=== PATIENT | female | born 1990 | race Asian ===

== ENCOUNTER 2024-08-05 05:53 | Inpatient (IN) ==
--- NOTE | 2024-07-26 15:19 | Anesthesiology Consultation ---
Date of Service July 26, 2024 Assessment & Plan (1) Encounter for pre-operative examination: Chart Review Chart Review: Patient NOT seen in Pre Admission Testing and administrative assistant data entry initiated Infectious Disease screening: Per PAT nursing assessment on 07/26/24, No known infectious disease contacts in past 10 days or current infectious disease symptoms. No recent travel outside the country. Pt had previous C/S in [place]; unable to obtain records; pt denies knowing any issues with anesthesia History Surgery Operation Date: 08/05/24 07:30 Proposed Procedures p Section in LD - Gwendolyn Araiza MD, FACOG s Post Tubal Ligation Labor & Deliv - Gwendolyn Araiza MD, FACOG Height/Weight Height: 5 ft 3 in Weight: 92.533 kg Allergies Allergy/AdvReac Type Severity Reaction Status Date / Time No Known Allergies Allergy Verified 07/26/24 14:13 Medications Home Medications Medication Instructions Recorded Confirmed Last Taken prenat.vits,alonso,[id number] 1 tab PO QAM 12/29/23 07/26/24 Unknown pen needle, diabetic 32 gauge x #100 ea 05/23/24 07/26/24 Unknown /32" (BD Ultra-Fine Maris Pen Needle) insulin NPH isoph U-100 human 100 12 unit (0.12 mL) subcut QPM #15 mL 06/06/24 07/26/24 Unknown unit/mL (3 mL) subcutaneous pen (Novolin N FlexPen) Past Medical History Medical History (Updated 07/26/24 @ 15:21 by Marita Guevara PA-C) ASCUS of cervix with negative high risk HPV Insulin controlled gestational diabetes mellitus (GDM) during Past Family History Family History Father Diabetes Hypertension Mother Diabetes Past Surgical History Surgical History Hx of section x2 11/2016 and 06/2018 Social History Smoking Status: Never smoker Do You Dip or Chew Tobacco: No Hx Alcohol Use: No Hx Substance Use: No substance use type: does not use
--- NOTE | 2024-08-04 17:16 | History & Physical Report ---
Date of Service August 04, 2024 Assessment & Plan (1) Insulin controlled gestational diabetes mellitus (GDM) during : Plan: IUP at 39+ weeks , s/p LTCS X 2 now presents for repeat C/S and bilateral salpingectomies because of multiparity and unwanted fertility the procedure and it's risks reviewed with the patient and all questions answered to her satisfaction and she is willing to proceed. History of Present Illness Primary Care Provider: NO PCP Patient is a 34 yo female EDC 08/09/24 who presents at 39 3/7 weeks for repeat LTCS and charlie salpingectomies. complicated by prior C/S X 2, GDM on insulin. testing has been reassuring with AGA fetus on growth scans. Allergies Allergy/AdvReac Type Severity Reaction Status Date / Time No Known Allergies Allergy Verified 08/04/24 14:18 Home Medications Medication Instructions Recorded Confirmed Type prenat.vits,alonso,[id number] 1 tab PO QAM 12/29/23 08/04/24 History pen needle, diabetic 32 gauge x #100 ea 05/23/24 08/04/24 Rx /32" (BD Ultra-Fine Maris Pen Needle) insulin NPH isoph U-100 human 100 12 unit (0.12 mL) subcut QPM #15 mL 06/06/24 08/04/24 Rx unit/mL (3 mL) subcutaneous pen (Novolin N FlexPen) Patient History Medical History ASCUS of cervix with negative high risk HPV Insulin controlled gestational diabetes mellitus (GDM) during Surgical History Hx of section x2 11/2016 and 06/2018 Family History Father Diabetes Hypertension Mother Diabetes Social History (Updated 12/29/23 @ 13:32 by Jessica Gan) Smoking Status: Never smoker Second Hand Exposure: No; Do You Dip or Chew Tobacco: No; Hx Alcohol Use: No Hx Substance Use: No Preferred Language: [facility] Asst Required: Yes Beliefs That Will Affect Care: None marital status: marital status details: [phone] (friend Yeison) Current Living Situation: Spouse and Family Current Living Situation Comment: lives with spouse and 2 children current occupational status: unemployed current occupation: homemaker Feels Safe at Home: Yes Assistive Devices: Glasses Review of Systems All systems reviewed & are unremarkable except as noted in HPI & below Physical Exam 2 Constitutional: WD/WN, vitals as above Respiratory: normal respiratory effort, lungs clear to auscultation Cardiovascular: RRR, no murmur, no edema Genitourinary: OB Exam Abdomen: + vertex OB Exam Monitor Tracing: + external FHT monitor used, + external uterine monitor used, + category I and + normal FHT variability Coding Level of Care Code 78386 INT INP/OBS CARE MIN Diagnoses Insulin controlled gestational diabetes mellitus (GDM) in third trimester O24.414 Trimester: third trimester (1) Insulin controlled gestational diabetes mellitus (GDM) during Trimester: third trimester Qualified Code(s): O24.414 - Gestational diabetes mellitus in , insulin controlled
[2024-08-05] MEDS ORDERED: MoRPHine SULFATE PF 1 MG/ML 10 ML AMP/VIAL ONE (06:29)
[2024-08-05] MEDS ORDERED: fentaNYL citrate PF 100 MCG/2 ML VIAL ONE (06:29)
[2024-08-05] MEDS ORDERED: OXYTOCIN 10 UNITS/ML VIAL ONE ×2 (06:30→08:16)
[2024-08-05] MEDS ORDERED: PHENYLEPHRINE HCL 25 MG/250 ML NSS IV ONE (06:34)
[2024-08-05] MEDS: LACTATED RINGER'S 1,000 ML IV SCH ×2 (06:45→07:18)
[2024-08-05] MEDS: ACETAMINOPHEN 500 MG TAB PO SCH (07:07)
[2024-08-05] MEDS: ceFAZolin 3,000 MG/72.5 ML BAG IV SCH (07:08)
[2024-08-05] MEDS: CITRIC ACID/SODIUM CITRATE 15 ML UDC PO SCH (07:10)
--- NOTE | 2024-08-05 07:20 | History & Physical Bridge Note ---
Date of Service August 05, 2024 History & Physical Bridge Note I have examined the patient, reviewed the History & Physical and in the interval since the performance of the History & Physical I have noted the following changes of clinical significance: no changes noted
[2024-08-05 07:32] LABS: Hematocrit (blood only) 39.8 % (37.0-47.0); Hemoglobin 12.6 g/dl (12.0-16.0); Mean Corpuscular Hemoglobin 24.1 pg (25.0-34.0); Mean Corpuscular Hgb Conc 31.7 g/dL (32.0-36.0); Mean Corpuscular Volume 76.1 fL (80.0-100.0); Mean Platelet Volume 11.7 fL (9.4-12.4); Platelet Count 163 K/uL (130-400); RDW Coefficient of Variation 15.1 % (11.5-14.5); RDW Standard Deviation 41.1 fL (36.4-46.3); Red Blood Count 5.23 M/uL (4.20-5.40); White Blood Count 6.86 K/ul (4.8-10.8)
[2024-08-05] MEDS ORDERED: HYDROmorphone INJ 0.5 MG/0.5 ML SYR IV PRN (07:52)
[2024-08-05] MEDS ORDERED: NALOXONE HCL 0.4 MG/1 ML VIAL/CARP IV PRN (07:52)
[2024-08-05] MEDS ORDERED: NALBUPHINE HCL INJ 10 MG/ML AMP IV PRN (07:52)
[2024-08-05] MEDS ORDERED: NALOXONE HCL 1 MG in SODIUM CHLORIDE 0.9% 1,000 ML IV PRN (07:52)
[2024-08-05] MEDS ORDERED: NALOXONE HCL 0.08 MG in SYRINGE 1.8 ML IV PRN (07:52)
[2024-08-05] MEDS ORDERED: MoRPHine SULFATE PF 1 MG/ML 10 ML AMP/VIAL INT SPINAL ONE (07:52)
[2024-08-05] MEDS ORDERED: LACTATED RINGER'S 500 ML IV PRN (07:52)
[2024-08-05] MEDS ORDERED: KETOROLAC 30 MG/ML VIAL IV PRN (07:52)
[2024-08-05] MEDS ORDERED: ONDANSETRON INJ 2 MG/ML 2 ML VIAL IV PRN ×2 (07:52→08:48)
[2024-08-05] MEDS ORDERED: ePHEDrine sulfate 50 MG/ML AMP IV PRN (07:52)
[2024-08-05] MEDS ORDERED: diphenhydrAMINE 50 MG/ML VIAL IV PRN (07:52)
[2024-08-05] MEDS ORDERED: SODIUM CHLORIDE 0.9% 250 ML IV PRN (07:56)
[2024-08-05] MEDS ORDERED: NO NARCOTICS OR SEDATIVES SCH (08:00)
[2024-08-05] MEDS ORDERED: DC INTRASPINAL MORPHINE SCH (08:00)
[2024-08-05] MEDS ORDERED: SODIUM CHLORIDE 0.9% 1,000 ML IV SCH (08:00)
[2024-08-05] MEDS ORDERED: ONDANSETRON INJ 2 MG/ML 2 ML VIAL ONE (08:05)
[2024-08-05] MEDS ORDERED: KETOROLAC 30 MG/ML VIAL ONE (08:25)
--- NOTE | 2024-08-05 08:47 | Post Operative Brief Note ---
Immediate Post Op Note Date of Surgery August 05, 2024 Pre & Post Diagnosis Operation Date: 08/05/24 07:30 <No data on this case meets the specified criteria> I identified the patient and participated in the time-out.: Yes Procedure Operation Date: 08/05/24 07:30 <No data on this case meets the specified criteria> Surgeon Gwendolyn Araiza MD, FACOG Survey Methodologist Rachid Butler MD Quantitative Blood Loss (QBL) 335 Findings Consistent with Post-Op Diagnosis gravid uterus consistent with term , bilateral tubes and ovaries are normal Specimens Specimen Description: 1. Placenta-Hold. 2. Cord Blood. 3. Right portion of fallopian tube. 4. Left portion of fallopian tube. Drains Emanuel Catheter (clear urine at end of case) Anesthesia Type Spinal Complications none Disposition Accompanied Patient To Recovery: Yes Disposition: L&D
[2024-08-05] MEDS ORDERED: HYDROCORTISONE ACETATE 25 MG SUPP PR PRN (08:48)
[2024-08-05] MEDS ORDERED: CALCIUM CARBONATE 500 MG CHEWABLE TAB PO PRN (08:48)
[2024-08-05] MEDS ORDERED: MAGNESIUM HYDROXIDE SUSP 30 ML UDC PO PRN (08:48)
[2024-08-05] MEDS ORDERED: BENZOCAINE 20% SPRY 85 APPLN/85 GM CAN EXT PRN (08:48)
[2024-08-05] MEDS ORDERED: SENNA 8.6 MG TAB PO PRN (08:48)
[2024-08-05] MEDS ORDERED: LACTATED RINGER'S 1,000 ML IV SCH (09:00)
--- NOTE | 2024-08-05 10:48 | Operative Report ---
Post Operative Report Pre & Post Diagnosis Operation Date: 08/05/24 07:30 Pre-Op Diagnosis: 1. 39 + Weeks Gestation. 2. Gestational Diabetes-Insulin. 3. Scheduled Elective Repeat C/S and Bilateral Salpingectomies. Post-Op Diagnosis: 1. 39 + Weeks Gestation. 2. Gestational Diabetes-Insulin. 3. Scheduled Elective Repeat C/S and Bilateral Salpingectomies. 4. Delivery of Male Infant via Repeat C/S in L&D OR on 08/05/2024 at 0807. 5. Delivery of Placenta. 6. Cord Blood Collected. 7. Right portion of fallopian tube ligation. 8. Left portion of fallopian tube ligation. I identified the patient and participated in the time-out.: Yes Procedure Operation Date: 08/05/24 07:30 Actual Procedures p Section - Gwendolyn Araiza MD, FACOG s with Bilateral Tubal Ligation - Gwendolyn Araiza MD, FACOG Surgeon Gwendolyn Araiza MD, FACOG Wax Pot Tender Rachid Butler MD Quantitative Blood Loss (QBL) 335 Findings Consistent with Post-Op Diagnosis Specimens placenta to hold Drains Emanuel catheter to straight drainage- clear urine at end of the case Anesthesia Type Spinal Complications none Disposition Accompanied Patient To Recovery: Yes Disposition: L&D Indications prior C/S X 2 fertility and unwanted fertility Description of Procedure After patient received adequate subarachnoid block she was prepped and draped in usual sterile fashion a low transverse skin incision was made through her prior scar and carried to the fascia with the same scalpel. The fascial incision was then extended with Echevarria scissors and the edges of the fascia were grasped with Marium clamps. The underlying rectus muscles were bluntly and sharply dissected off of the overlying fascia. Peritoneum was then entered bluntly. The bladder was then taken down off the anterior surface of the uterus and placed behind the bladder blade. The lower uterine segment was entered with a scalpel and extended transversely by stretching the incision in a cephalad and caudad direction. Membranes were ruptured for clear fluid. The infant was then delivered from the vertex presentation with moderate fundal pressure. He was vigorous crying and moving all 4 limbs. The cord was clamped and cut and the was handed off to Dr. Hart who was in attendance his enterprise applications manager. Placenta was then expressed intact with a three-vessel cord after obtaining cord blood sample. The uterus was exteriorized to cover the clean lap sponge. The uterine cavity was explored and found to be free of any placental tissue or membranes. Bleeding was controlled with uterine massage, dilute Pitocin as well as an additional 10 units of Pitocin into the uterine fundus. At this point the uterus was firm. The uterus was closed in 1 layer in a running locking fashion with 0 Monocryl suture. Hemostasis was noted to be excellent and the uterine incision. Attention was then turned to the bilateral salpingectomies. The right fallopian tube was grasped with a Sidman clamp the LigaSure device was then used to remove the entire fallopian tube starting at the fimbriated end to its insertion on the cornua. The left loping tube was then identified grasped with an Sidman clamp, and in the same fashion, removed the tube in its entirety from the fimbriated end to its insertion on the cornea of the uterus. Hemostasis noted be excellent at both salpingectomy sites. Posterior cul-de-sac was suctioned for small amount of blood and fluid. Uterus was then carefully placed inside the abdominal cavity after ensuring that the uterine incision continued to have excellent hemostasis. The gutters were then examined as well as the salpingectomy sites and there was no free fluid blood or clot present in the gutters and the salpingectomy sites continue to have excellent hemostasis. The rectus muscle were then brought together in the midline with individual stitches of 0 Monocryl. The fascia was closed in a running fashion with 0 Vicryl. The subcutaneous layer was then irrigated with normal saline. The skin edges were reapproximated in subcuticular fashion with 4-0 Vicryl. Patient tolerated the procedure well and was stable upon arrival back in labor and delivery. I attest to the content of the Intraoperative Record and any orders documented therein. Any exceptions are noted below. OB Procedure Charges [id number] [id number] Add on Tubal for C/S (bilateral salpingectomy with Ligasure device)
[2024-08-05] MEDS: OXYTOCIN 20 UNITS/LR 1,002 ML IV SCH (11:15)
[2024-08-05] MEDS: SIMETHICONE 80 MG CHEW PO SCH (12:57)
[2024-08-05] MEDS: ACETAMINOPHEN 325 MG TAB PO SCH (14:01)
[2024-08-05] MEDS: IBUPROFEN 600 MG TAB PO SCH (14:02)
--- NOTE | 2024-08-05 14:35 | Anesthesiology Progress Note ---
Date of Service August 05, 2024 Anesthesia Post Procedure Vital Signs Vital Signs: Temp Pulse Pulse Resp BP BP Pulse Ox 08/05/24 11:13 36.5 C 16 08/05/24 11:10 36.8 C 63 17 106/67 100 08/05/24 11:10 16 100 08/05/24 11:10 36.5 C 63 16 106/67 100 08/05/24 10:57 58 L 110/59 L 08/05/24 10:54 60 100 08/05/24 10:49 59 L 100 08/05/24 10:47 58 L 103/68 08/05/24 10:44 56 L 99 08/05/24 10:39 64 100 08/05/24 10:38 58 L 110/59 L 08/05/24 10:34 61 100 08/05/24 10:30 18 08/05/24 10:29 63 100 08/05/24 10:28 64 152/102 H 08/05/24 10:24 69 100 08/05/24 10:19 58 L 100 08/05/24 10:14 57 L 100 08/05/24 10:09 70 100 08/05/24 10:07 67 124/77 08/05/24 10:04 54 L 100 08/05/24 10:00 16 08/05/24 10:00 18 08/05/24 09:59 60 100 08/05/24 09:57 88 119/71 08/05/24 09:54 63 100 08/05/24 09:50 16 08/05/24 09:49 73 100 08/05/24 09:48 72 120/59 L 08/05/24 09:44 59 L 100 08/05/24 09:40 16 08/05/24 09:39 57 L 100 08/05/24 09:34 63 100 08/05/24 09:33 16 08/05/24 09:29 62 100 08/05/24 09:24 59 L 100 08/05/24 09:20 18 08/05/24 09:19 64 100 08/05/24 09:17 66 102/64 08/05/24 09:14 59 L 100 08/05/24 09:10 16 08/05/24 09:09 66 100 08/05/24 09:07 68 94/65 L 08/05/24 09:04 66 100 08/05/24 09:00 36.4 C L 18 08/05/24 08:59 66 100 08/05/24 08:55 65 98/69 L 08/05/24 08:54 70 100 08/05/24 07:00 18 08/05/24 07:00 18 08/05/24 06:30 18 08/05/24 06:30 18 08/05/24 06:11 36.7 C 18 08/05/24 06:05 76 118/77 O2 Del Method 08/05/24 11:13 08/05/24 11:10 Room Air 08/05/24 11:10 08/05/24 11:10 Room Air 08/05/24 10:57 08/05/24 10:54 08/05/24 10:49 08/05/24 10:47 08/05/24 10:44 08/05/24 10:39 08/05/24 10:38 08/05/24 10:34 08/05/24 10:30 08/05/24 10:29 08/05/24 10:28 08/05/24 10:24 08/05/24 10:19 08/05/24 10:14 08/05/24 10:09 08/05/24 10:07 08/05/24 10:04 08/05/24 10:00 08/05/24 10:00 08/05/24 09:59 08/05/24 09:57 08/05/24 09:54 08/05/24 09:50 08/05/24 09:49 08/05/24 09:48 08/05/24 09:44 08/05/24 09:40 08/05/24 09:39 08/05/24 09:34 08/05/24 09:33 08/05/24 09:29 08/05/24 09:24 08/05/24 09:20 08/05/24 09:19 08/05/24 09:17 08/05/24 09:14 08/05/24 09:10 08/05/24 09:09 08/05/24 09:07 08/05/24 09:04 08/05/24 09:00 08/05/24 08:59 08/05/24 08:55 08/05/24 08:54 08/05/24 07:00 08/05/24 07:00 08/05/24 06:30 08/05/24 06:30 08/05/24 06:11 08/05/24 06:05 Pain Intensity Medial Abdomen: Pain Intensity: 3 Notes Mental Status: alert / awake / arousable Patient Amnestic to Procedure: Yes Nausea / Vomiting: adequately controlled Pain: adequately controlled Airway Patency, RR, SpO2: stable & adequate BP & HR: stable & adequate Hydration State: stable & adequate Neuraxial Anesthesia: was administered and sensory block is resolving Anesthetic Complications: no major complications apparent
[2024-08-05] MEDS: DIPHTHER/TETAN/PERTUS Vaccine (Tdap, Adol/Adult) 0.5mL IM ONE (19:13)
[2024-08-05] MEDS: DOCUSATE SODIUM 100 MG CAP PO SCH (20:45)
[2024-08-06] MEDS ORDERED: PROMETHAZINE 12.5 MG/50.5 ML BAG IV PRN (01:52)
[2024-08-06] MEDS ORDERED: diphenhydrAMINE 50 MG/ML VIAL IV PRN (01:53)
[2024-08-06] MEDS ORDERED: oxyCODONE HCL IR 5 MG TAB (IMMEDIATE RELEASE) PO PRN (01:53)
[2024-08-06] MEDS ORDERED: diphenhydrAMINE Capsule 25 MG CAP PO PRN (01:53)
[2024-08-06] MEDS ORDERED: HYDROmorphone INJ 0.5 MG/0.5 ML SYR IV PRN (01:53)
[2024-08-06 07:17] LABS: Basophils # (auto) 0.02 K/uL (0.00-0.20); Basophils % (auto) 0.2 %; Eosinophils # (auto) 0.09 K/uL (0.00-0.50); Eosinophils % (auto) 1.1 %; Hematocrit (blood only) 35.4 % (37.0-47.0); Hemoglobin 11.6 g/dl (12.0-16.0); Immature Granulocytes # (auto) 0.03 K/uL (0.01-0.20); Immature Granulocytes % (auto) 0.4 %; Lymphocytes % (auto) 18.6 %; Mean Corpuscular Hemoglobin 24.5 pg (25.0-34.0); Mean Corpuscular Hgb Conc 32.8 g/dL (32.0-36.0); Mean Corpuscular Volume 74.7 fL (80.0-100.0); Mean Platelet Volume 11.1 fL (9.4-12.4); Neutrophils # (auto) 6.03 K/uL (1.40-6.50); Neutrophils % (auto) 74.7 %; Platelet Count 152 K/uL (130-400); RDW Coefficient of Variation 14.9 % (11.5-14.5); RDW Standard Deviation 40.4 fL (36.4-46.3); Red Blood Count 4.74 M/uL (4.20-5.40); White Blood Count 8.07 K/ul (4.8-10.8)
--- NOTE | 2024-08-06 07:38 | Obstetrical Progress Note ---
Date of Service August 06, 2024 Assessment & Plan (1) delivery delivered: Plan: 1st POD foll El LTCS and BL salpingectomy for s/p LTCS X 2 at 39 weeks POD with GDM under Insulin. Overall doing well: Vitals: Stable Pain : Mild Urine: passed Gas: Passed Ambulation : to bathroom Diet: Ob normal Post op Hb: 11.6gm% Continue same trt as per protocol Encouraged ambulation. Encouraged feeding to baby. Possible discharge tomorrow. (2) Insulin controlled gestational diabetes mellitus (GDM) during : Plan: - GDM: Insulin stoped after delivery Advise: OGTT in 6 weeks PP. Admission and Anticipated Discharge Date Admission Date: August 05, 2024 Supervising Physician Co-Signing Physician Notes Resident Physician Supervision Note: Discussed with Dr. Garcia and agree with findings and plan as documented in the note. Any exceptions or clarifications are listed here: [ ] Documented By: Tammie Ferrera MD, FACOG Subjective 1st POD foll El LTCS and BL salphingectomy for s/p LTCS X 2 at 39 weeks POD. No active complains Vitlas: Stable Pain : Mild Urine: passed Gas: Passed Ambulation : to bathroom Diet: Ob normal Baby kept at nursery Review of Systems Review of Systems: As per HPI Physical Exam Physical Exam: General: Alert and oriented. No acute distress. CV: Regular rate and rhythm. No murmurs. Respiratory: CTA bilaterally. No rhonchi, wheezes, or crackles. No increased work of breathing. Abdomen: Positive bowel sounds. Soft, nontender, and nondistended. Uterus: Fundus firm and palpable midway between umbilicus and Symphysis pubis. Surgical scar clean and healing well. Bandage removed. Lower extremities: No LE edema. No deep calf pain. Daniel's negative bilaterally. Results & Data Vital Signs (Past 12 Hours) Vital Signs Temp Pulse Resp BP Pulse Ox O2 Del Method 08/06/24 03:38 36.7 C 68 16 100/61 100 Room Air 08/05/24 23:12 36.8 C 65 16 95/64 L 96 Room Air Resident Activity Tracking Resident Involvement: Resident Care Provided Care Provided: OB Delivery (2) Insulin controlled gestational diabetes mellitus (GDM) during Trimester: third trimester Qualified Code(s): O24.414 - Gestational diabetes mellitus in , insulin controlled
[2024-08-06] MEDS: FERROUS SULFATE 325 MG TAB PO SCH (08:04)
[2024-08-06] MEDS: PRENATAL VITAMIN 1 TAB PO SCH (08:04)
[2024-08-06] MEDS: bisacodyL 5 MG TABEC PO SCH (20:27)
[2024-08-06 21:39] VITALS: TEMP 98.4
[2024-08-07 06:49] LABS: Hematocrit (blood only) 35.6 % (37.0-47.0); Hemoglobin 11.1 g/dl (12.0-16.0)
[2024-08-07 07:33] VITALS: BP 112/73; PULSE 69; RESP 18; O2SAT 100
[2024-08-07] MEDS ORDERED: bisacodyL 10 MG SUPP PR PRN (08:48)
--- NOTE | 2024-08-07 08:51 | Obstetrical Progress Note ---
Date of Service August 07, 2024 Assessment & Plan (1) delivery delivered: satisfactory and postop recovery will discharge to home today follow up in 6 weeks or PRN Subjective Ambulation: ambulating normally Voiding: no voiding problems Passing Gas:: Yes Diet Tolerance:: regular diet Lochia:: Small Feeding Type:: breast feeding doing well this morning- pain well controlled with NSAID and Tylenol Review of Systems All systems reviewed & are unremarkable except as noted in HPI & below Physical Exam Constitutional WD/WN, vitals as above Gastrointestinal (Abdomen) Inspection/Auscultation: + abdominal surgical incision (dry & intact- no cellulitis) Psychiatric A+Ox3, euthymic affect Genitourinary OB Exam Abdomen: + fundal height Fundus: + firm and + relation to umbilicus (2 below U) Results & Data Vital Signs (Past 12 Hours) Vital Signs Temp Pulse Resp BP Pulse Ox O2 Del Method 08/07/24 07:32 98.4 F 69 18 112/73 100 Room Air 08/06/24 23:09 98.4 F 66 16 111/69 96 Room Air
[2024-08-07] MEDS ORDERED: IBUPROFEN 600 MG TAB PO PRN (13:48)
[2024-08-07] MEDS ORDERED: ACETAMINOPHEN 325 MG TAB PO PRN (13:48)
--- NOTE | 2024-08-08 08:56 | Discharge Summary ---
Date of Service August 08, 2024 Admission HPI Per Admitting Provider Patient is a 34 yo female EDC 08/09/24 who presents at 39 3/7 weeks for repeat LTCS and charlie salpingectomies. complicated by prior C/S X 2, GDM on insulin. testing has been reassuring with AGA fetus on growth scans. Admission Exam (Per Admitting) Constitutional WD/WN, vitals as above Respiratory normal respiratory effort, lungs clear to auscultation Cardiovascular RRR, no murmur, no edema Gastrointestinal (Abdomen) Inspection/Auscultation: + abdominal surgical incision (dry & intact- no cellulitis) Psychiatric A+Ox3, euthymic affect Genitourinary OB Exam Abdomen: + fundal height and + vertex OB Exam Monitor Tracing: + external FHT monitor used, + external uterine monitor used, + category I and + normal FHT variability Discharge Data Consultations 08/05/24 06:40 Consult Anesthesiology Stat Procedures Performed Operation Date: 08/05/24 07:30 Actual Procedures p Section - Gwendolyn Araiza MD, FACOG s with Bilateral Tubal Ligation - Gwendolyn Araiza MD, FACOG Hospital Course (1) delivery delivered: satisfactory and postop recovery will discharge to home today follow up in 6 weeks or PRN Discharge Plan Discharge Items Patient Disposition: Home - Self-Care Reason For Visit: History of Section, Request for Steriliza Discharge Diagnosis: and bilateral salpingectomy Activity: Per Instructions section Non-emergency contact: Caterer Helper Call non-emergency contact if: your pain is not controlled, your pain is concerning for you, your temperature is above 101, your wound has increased redness, your wound has increased drainage and your wound pain has increased Follow-up/Referrals: PCP,NO [Primary Care Provider] - Diet: Regular Addtl Attending Provider Instructions: ACTIVITY RECOMMENDATIONS: * Gradual return to full activity over the next 2-3 weeks. * No lifting - nothing heavier than baby over the next 2-3 weeks. * Do not engage in vigorous exercise, sexual activity or sports until cleared by your physician. * Do not drive or operate any motorized equipment until cleared by your physician. * You may shower/bathe daily. MEDICATIONS: For discomfort or pain, you may use Acetaminophen (Tylenol), Ibuprofen (Advil), or Naproxen (Aleve) following the package directions. For constipation you may use Colace following the package directions. BREAST CARE: If you are not breast feeding: * Wear a supportive bra 24 hours a day for one to two weeks. * Avoid stimulating your breasts and nipples as much as possible during the first few weeks after delivery. * When taking a shower, have the warm water hit your back, not breasts. * When your breasts feel full, apply ice packs. Usually three to four times a day helps ease the discomfort. * Take a mild pain medication (Tylenol / Motrin) when you are uncomfortable. If breast feeding: * Use breast milk to lubricate nipples. Lansinoh cream may be used for sore nipples. You do not need to remove cream prior to breast feeding. If using a different brand of cream, check the label for directions regarding removal of cream prior to nursing. * Wear a supportive bra. * If having problems with breasts or breast feeding, call a accounting policy consultant or your health care provider. SPECIAL CARE INSTRUCTIONS: When you are discharged from the hospital, it is important for you to follow the instructions listed below: * During the first week at home, you should be able to care for yourself and your baby. In addition, the usual light household activities are encouraged. * Limit your activities to the way you feel. Do not try to clean the house or move furniture. Be sensible. * If you actively engage in sports and have done so up until the time of your delivery, you may resume these activities as soon as you feel able. This may take up to one month or even longer. Use good judgment. * Continue to take your vitamins for at least six weeks after the of your baby. * Your diet need not be limited unless you were on a special diet before your delivery. Breast-feeding mothers need around 2500 calories per day and at least 64-80 ounces of fluid per day (8 to 10 glasses). * You should eat foods from the four major food groups. Crash diets or fad diets are to be avoided. Eating lean meats, fresh fruits and vegetables, low-fat dairy products, high fiber foods and a regular exercise program, will help you get back to your pre- weight without putting your health at risk. * Constipation is sometimes a problem after delivery. Take a mild laxative as needed. If breast feeding, Milk of Magnesia is acceptable to use. You may use a suppository or Fleets enema. * A daily shower or tub bath is suggested. Wash incision daily with warm soapy water and pat dry. It doesn't need to be covered unless drainage is present. * A bloody vaginal discharge will usually continue until around four weeks . A small amount of bleeding may continue for as long as six weeks. Vaginal discharge changes from the bright red bleeding after delivery to pink then brownish and finally yellowish-pink before becoming white and disappearing. * Bleeding may increase with activity. Your first period may come in 4-8 weeks. If you are breast feeding, your period may be delayed even longer. * [place] (sex) can begin whenever both you and your partner feel comfortable and do not have any form of genital infection. It is recommended that you wait at least six weeks for internal and external healing to occur. If you have questions, please talk to your health care practitioner. A condom should be used to prevent infection and . * Foreplay, gentle intercourse and lubrication is very important the first several times to prevent pain. A water-based lubricant such as K-Y jelly or Astroglide may be used. * If you have RH negative blood and your baby is RH positive, you will receive RHOGAM by injection prior to discharge. The nurse will give you a card to keep with you that has the date and place that you received RHOGAM after delivery. * During your care, you had a Rubella screen done to check for the presence of rubella antibodies in your blood. If your test was negative, you will receive a Rubella vaccine prior to discharge. This vaccine may cause a fever, soreness at the injection site and flu-like symptoms. If these symptoms persist, notify your health care practitioner. is not advised for one month after a Rubella vaccine. * Verbalizes understanding of car seat law as reviewed with patient nursing. * Car Seat hand-out given and reviewed with patient by nursing. * Shaken baby information reviewed with patient by nursing. Call you doctor if: * Heavy bleeding (saturating several pads an hour) or passing clots the size of your fist. * A fever >101 degrees F (38.3 degrees C) on two occasions four hours apart and/or chills. * Unusual pain in the pelvic or vaginal areas. * Call the doctor for any increased redness, drainage or swelling around the incision and any pain unrelieved by prescribed pain medication. * "Baby Blues" lasting longer than two weeks. If you have any questions or concerns, call your health care practitioner at . FOLLOW UP VISIT: * Please call the office at to schedule a 6 week examination. It is important you keep this appointment. It is important for you to make arrangements for either yearly or twice yearly check-ups thereafter. Pending Studies at Discharge: Yes Studies:: path report Stand-Alone Forms: [facility] Medications and DC Order Prescriptions: Continued prenat.vits,alonso,[id number] Tablet 1 tab PO QAM Discontinued (DME) pen needle, diabetic [BD Ultra-Fine Maris Pen Needle] 32 gauge x 5/32" needle See Rx Instructions miscellaneous .MEDSUPPLY Qty: 100 0RF Rx Instructions: As directed to use with insulin pen Novolin N FlexPen 100 unit/mL (3 mL) insulin pen 12 unit subcut QPM Qty: 15 0RF Rx Instructions: Inject 12 units at bed time. Increase as needed up to TDD of 30 units a day. Discharge Orders: Discharge Order (Routine); Ordered 08/07/24 Ordered By: Gwendolyn Quezada/Other Patient Handouts: Understanding Deep Vein Thrombosis, Understanding Depression Admission Data Admit Date/Time: 08/05/24 05:53 Attending Provider: Gwendolyn Araiza Admit Provider: Gwendolyn Araiza Primary Care Provider: PCP,NO Other Providers: Diane Garcia; Tammie Ferrera Other Interventions: Discharge Summary Assessment (RN) Last Done: 08/07/24 10:33 Coding Level of Care Code 49828 IN/OBS DISCH 30 MIN/LESS Diagnoses delivery delivered O82
== END 2024-08-07 12:45 | disposition home or self-care (01) | DRG 785 ==
LOC: 4S1 05:53 → EDSTATUS 07:30 → 4E2 11:10
PROC: M.PPTLD (2024-08-05 07:30)